=== PATIENT | male | born 1970 | race Caucasian/White ===

== ENCOUNTER 2020-06-22 18:59 | Inpatient (IN) | payer BC ==
--- NOTE | 2020-06-22 19:44 | Event Note ---
ED Screening Note Date of service: 06/22/20 Time: 19:38 ED Screening Note: 50 y o male with PMH DM, HTN, Cholesterol presents s/p fall x 3 days ago while he was drunk, states been drinking x 3 days and hasnt been taking his meds cc of right sided lateral thorax pain This initial assessment/diagnostic orders/clinical plan/treatment(s) is/are subject to change based on patients health status, clinical progression and re- assessment by fellow clinical providers in the ED. Further treatment and workup at subsequent clinical providers discretion. Patient/guardian urged not to elope from the ED as their condition may be serious if not clinically assessed and managed. Initial orders include: labs, ua, rib detail
--- NOTE | 2020-06-22 20:27 | XRay Report ---
BILATERAL RIB SERIES 5 VIEWS INDICATION: Chest pain after fall. COMPARISON: No relevant prior imaging study available. FINDINGS: No acute pulmonary or pleural findings. No displaced rib fractures are seen bilaterally. IMPRESSION: 1. No acute findings. Signer Name: Kaden Lorenz MD Signed: 06/22/2020 8:23 PM Workstation Name: [id number]
[2020-06-22 21:39] LABS: Basophils # (Auto) 0.1 K/mm3 (0.0-0.1); Basophils % (Auto) 0.3 % (0.0-1.8); Hematocrit 45.7 % (35.5-45.6); Hemoglobin 15.5 gm/dl (11.8-15.2); Lymphocytes # (Auto) 2.3 K/mm3 (1.2-5.4); Lymphocytes % (Auto) 11.6 % (13.4-35.0); Mean Corpuscular HGB Conc 34 % (32-34); Mean Corpuscular Volume 87 fl (84-94); Monocytes # (Auto) 1.2 K/mm3 (0.0-0.8); Monocytes % (Auto) 5.9 % (0.0-7.3); Platelet Count 349 K/mm3 (140-440); Red Blood Count 5.24 M/mm3 (3.65-5.03); Red Cell Distribution Width 13.4 % (13.2-15.2)
[2020-06-22 21:44] LABS: Alanine Aminotransferase 40 units/L (7-56); Albumin 4.8 g/dL (3.9-5); Blood Urea Nitrogen 10 mg/dL (9-20); Hemolysis Index 7
[2020-06-22 21:55] LABS: BUN/Creatinine Ratio 17
[2020-06-23 00:15] LABS: Bilirubin,Urine NEG (Negative); Blood,Urine SM (Negative); Color,Urine Straw (Yellow); Mucus,Urine FEW /HPF; Protein,Urine <15 mg/dL mg/dL (Negative); Urobilinogen,Urine < 2.0 mg/dL (<2.0); WBC,Urine < 1.0 /HPF (0.0-6.0)
[2020-06-23] MEDS ORDERED: SODIUM CHLORIDE 0.9% 1000 ML 1,000 ML ONE (00:46)
[2020-06-23] MEDS ORDERED: SODIUM CHLORIDE 0.9% 1000 ML 1,000 ML IV ONE ×2 (00:47→01:38)
[2020-06-23] MEDS ORDERED: D5W/0.9% NACL 1,000 ML IV STA (00:55)
--- NOTE | 2020-06-23 01:08 | Emergency Department Report ---
<RAFAEL FENTON - Last Filed: 06/23/20 00:51> ED Fall HPI - General Chief Complaint: Fall Stated Complaint: DIZZY Time Seen by Provider: 06/23/20 01:30 Source: patient Mode of arrival: Ambulatory - History of Present Illness Initial Comments: 50-year-old male presents emergency department complaining of a trip and fall about 3 days ago while he was intoxicated landing on his right side and since that time having pain with movement and deep breaths. Reports no fevers chills or sweats no nausea vomiting but states he has not been taking his diabetic medications as prescribed for the last 3 to 4days as he has been constantly drinking in the evening time he does not take any diabetic medications in the morning. States his blood sugars have been running more high as a result. States has been having excessive amount of anxiety leading to racing heartbeats that he has been experiencing since the time of trauma. - Related Data Home Medications Medication Instructions Recorded Confirmed Last Taken AtorvaSTATin 20 mg PO DAILY 06/23/20 06/23/20 Unknown Empagliflozin [Jardiance] 10 mg PO DAILY 06/23/20 06/23/20 Unknown Lisinopril/Hydrochlorothiazide 1 tab PO QDAY 06/23/20 06/23/20 Unknown [Zestoretic 20-25 mg] Metformin HCl [Metformin HCl ER] 500 mg PO BID 06/23/20 06/23/20 Unknown glipiZIDE [Glucotrol] 10 mg PO QDAY 06/23/20 06/23/20 Unknown Allergies Allergy/AdvReac Type Severity Reaction Status Date / Time No Known Allergies Allergy Verified 06/23/20 00:53 ED Review of Systems Comment: All other systems reviewed and negative ED Past Medical Hx - Past Medical History Previous Medical History?: Yes Hx Hypertension: Yes Hx Diabetes: Yes Additional medical history: high cholesterol - Surgical History Past Surgical History?: No - Social History Smoking Status: Never Smoker Substance Use Type: Alcohol - Medications Home Medications: Home Medications Medication Instructions Recorded Confirmed Last Taken Type AtorvaSTATin 20 mg PO DAILY 06/23/20 06/23/20 Unknown History Empagliflozin [Jardiance] 10 mg PO DAILY 06/23/20 06/23/20 Unknown History Lisinopril/Hydrochlorothiazide 1 tab PO QDAY 06/23/20 06/23/20 Unknown History [Zestoretic 20-25 mg] Metformin HCl [Metformin HCl ER] 500 mg PO BID 06/23/20 06/23/20 Unknown History glipiZIDE [Glucotrol] 10 mg PO QDAY 06/23/20 06/23/20 Unknown History ED Physical Exam - General Limitations: Language Barrier General appearance: alert, in no apparent distress - Head Head exam: Present: atraumatic, normocephalic - Eye Eye exam: Present: normal appearance, PERRL, EOMI Pupils: Present: normal accommodation - ENT ENT exam: Present: normal exam, normal orophraynx, mucous membranes moist - Neck Neck exam: Present: normal inspection - Respiratory Respiratory exam: Present: normal lung sounds bilaterally, chest wall tenderness (Right chest tenderness). Absent: respiratory distress - Cardiovascular Cardiovascular Exam: Present: regular rate, normal rhythm. Absent: normal heart sounds, systolic murmur, diastolic murmur, rubs, gallop - GI/Abdominal GI/Abdominal exam: Present: soft, normal bowel sounds - Rectal Rectal exam: Present: deferred - Extremities Exam Extremities exam: Present: normal inspection - Back Exam Back exam: Present: normal inspection - Neurological Exam Neurological exam: Present: alert, oriented X3 - Psychiatric Psychiatric exam: Present: normal affect, normal mood - Skin Skin exam: Present: warm, dry, intact, normal color. Absent: rash ED Medical Decision Making - Lab Data Result diagrams: 06/22/20 21:05 06/22/20 21:05 ED Disposition Clinical Impression: Alcohol use disorder, Metabolic acidosis, Metabolic acidosis, increased anion gap (IAG), Hyponatremia, Tremor Alcohol withdrawal Qualifiers: Complication of substance-induced condition: uncomplicated Qualified Code(s): F10.230 - Alcohol dependence with withdrawal, uncomplicated Disposition: DC-09 OP ADMIT IP TO THIS HOSP Condition: Critical <JUAN THURSTON - Last Filed: 06/23/20 02:44> ED Fall HPI - General Source: patient, RN notes reviewed Limitations: No Limitations ED Review of Systems Constitutional: denies: chills, fever Eyes: denies: eye pain, eye discharge, vision change ENT: denies: ear pain, throat pain Respiratory: denies: cough, shortness of breath, wheezing Cardiovascular: denies: chest pain, palpitations Endocrine: no symptoms reported Gastrointestinal: denies: abdominal pain, nausea, diarrhea Genitourinary: denies: urgency, dysuria Musculoskeletal: denies: back pain, joint swelling, arthralgia Skin: denies: rash, lesions Neurological: denies: headache, weakness, paresthesias Psychiatric: denies: anxiety, depression Hematological/Lymphatic: denies: easy bleeding, easy bruising ED Medical Decision Making - Lab Data Result diagrams: 06/22/20 21:05 06/22/20 21:05 <JEFF GAY III - Last Filed: 06/23/20 05:40> ED Fall HPI - General Source: patient Mode of arrival: Ambulatory - History of Present Illness Initial Comments: Patient is a 50-year-old male that presents emergency room with a fall 3 days ago. Patient complaining of right rib pain. Patient states that the right- sided rib pain is a 10 out of 10. Patient states that the rib pain is better with rest. Patient states the pain is worse with movement, palpation and deep breath. Patient denies nausea and vomiting. Patient states he drinks regularly. Patient states is not taking any medications for diabetes or high blood pressure or high cholesterol. Patient states his last alcoholic drink was at noon yesterday. Patient states he is feeling shaky. Patient denies recent travel. Patient denies recent international travel. Patient denies exposure to the novel coronavirus. Patient denies sick contacts. Patient denies fever and chills. Patient denies cough. Patient denies diarrhea. Patient denies coming in contact with anybody with symptoms of the novel coronavirus. Complaint: fall -: Sudden Fall From: standing When Fall Occurred: unsure Fall Witnessed: no Place Fall Occurred: home Loss of Consciousness: none Prolonged Down Time?: no Location: chest Severity: severe Severity scale (0 -10): 10 Quality: sharp Context: tripped/slipped, alcohol use Associated Symptoms: denies. denies: headache, neck pain, numbness, weakness, chest paint, shortness of breath, abdominal pain, hematuria, unable to walk, lightheaded, vertigo, confusion ED Review of Systems ROS: Stated complaint: DIZZY Other details as noted in HPI Constitutional: denies: chills, fever Eyes: denies: eye pain, eye discharge, vision change ENT: denies: ear pain, throat pain Respiratory: denies: cough, shortness of breath, wheezing Cardiovascular: chest pain. denies: palpitations Endocrine: no symptoms reported Gastrointestinal: denies: abdominal pain, nausea, diarrhea Genitourinary: denies: urgency, dysuria Musculoskeletal: denies: back pain, joint swelling, arthralgia Skin: denies: rash, lesions Neurological: as per HPI. denies: headache, weakness, paresthesias Psychiatric: denies: anxiety, depression Hematological/Lymphatic: denies: easy bleeding, easy bruising ED Past Medical Hx - Past Medical History Previous Medical History?: Yes Hx Hypertension: Yes Hx Diabetes: Yes - Surgical History Past Surgical History?: No - Family History Family history: no significant - Social History Smoking Status: Never Smoker Substance Use Type: Alcohol ED Physical Exam - General Limitations: No Limitations General appearance: alert, in no apparent distress - Head Head exam: Present: atraumatic, normocephalic - Eye Eye exam: Present: normal appearance - ENT ENT exam: Present: mucous membranes moist - Neck Neck exam: Present: normal inspection - Respiratory Respiratory exam: Present: normal lung sounds bilaterally, chest wall tenderness. Absent: respiratory distress, wheezes, rales - Cardiovascular Cardiovascular Exam: Present: regular rate, normal rhythm. Absent: systolic murmur, diastolic murmur, rubs, gallop - GI/Abdominal GI/Abdominal exam: Present: soft, normal bowel sounds - Rectal Rectal exam: Present: deferred - Extremities Exam Extremities exam: Present: normal inspection - Back Exam Back exam: Present: normal inspection - Neurological Exam Neurological exam: Present: alert, oriented X3 - Psychiatric Psychiatric exam: Present: normal affect, normal mood - Skin Skin exam: Present: warm, dry, intact, normal color. Absent: rash ED Course Vital Signs 06/22/20 06/23/20 06/23/20 19:39 01:34 01:45 Temperature 99.1 F Pulse Rate 123 H 109 H 107 H Respiratory 20 20 31 H Rate Blood Pressure 134/85 145/58 O2 Sat by Pulse 96 98 96 Oximetry 06/23/20 06/23/20 06/23/20 02:00 02:15 02:30 Temperature Pulse Rate 107 H 105 H 108 H Respiratory 25 H 26 H 24 Rate Blood Pressure 136/73 133/72 142/74 O2 Sat by Pulse 94 97 94 Oximetry 06/23/20 06/23/20 06/23/20 02:45 03:00 03:15 Temperature Pulse Rate 106 H Respiratory 22 Rate Blood Pressure 119/70 119/70 127/71 O2 Sat by Pulse 94 97 96 Oximetry 06/23/20 06/23/20 06/23/20 03:30 03:45 04:00 Temperature Pulse Rate 99 H 105 H Respiratory 24 23 Rate Blood Pressure 120/69 127/68 124/64 O2 Sat by Pulse 96 96 94 Oximetry - Reevaluation(s) Reevaluation #1: Initial evaluation done. Patient tremulous and shaky. Patient placed on a CIWA protocol. Patient has abnormal labs. Patient will be given fluids. Patient given a milligram of Ativan. I discussed all results with patient. I discussed plan of care with patient. Patient agrees with plan of care and admission. Patient to be admitted to the hospitalist service. 06/23/20 01:40 - Consultations Consultation #1: Hospitalist consulted for admission. Hospitalist to admit patient. 06/23/20 01:48 ED Medical Decision Making - Lab Data Result diagrams: 06/22/20 21:05 06/22/20 21:05 - EKG Data -: EKG Interpreted by Me EKG shows normal: sinus rhythm, axis, intervals, QRS complexes, ST-T waves Rate: tachycardia - Radiology Data Radiology results: report reviewed, image reviewed interpreted by me: Rib series, chest x-ray: No pneumonia, no pneumothorax, no foreign body, no osseous findings, no acute findings BILATERAL RIB SERIES 5 VIEWS INDICATION: Chest pain after fall. COMPARISON: No relevant prior imaging study available. FINDINGS: No acute pulmonary or pleural findings. No displaced rib fractures are seen bilaterally. IMPRESSION: 1. No acute findings. - Medical Decision Making Patient is a 50-year-old male who presents emergency room with complaints of recent fall and rib pain. Patient also complained of frequent alcohol use and not taking any of his medications. Patient had labs done. Patient's labs showed a metabolic acidosis with an open anion gap. Patient given fluids in the ER. Patient also began to become tremulous and shaky and complaining of anxious anxiety. Patient also found to be tachycardic. Patient placed on a CIWA protocol for withdrawal. Patient given a milligram of Ativan prophylactically. Patient's responded well to Ativan. Patient is found to be hyperglycemic but blood sugar was 180. Patient had a chest x-ray which was negative for acute findings and fracture. Patient complained of right chest pain secondary to a fall. Patient admitted to the hospitalist service and into the ICU. . - Differential Diagnosis Electrolyte imbalance, dehydration, acidosis, withdrawal, fall, chest pain, Critical Care Time: Yes Critical care time in (mins) excluding proc time.: 35 Critical care attestation.: If time is entered above; I have spent that time in minutes in the direct care of this critically ill patient, excluding procedure time. Critical Care Time: 35 minutes ED Disposition Is pt being admited?: Yes Does the pt Need Aspirin: No Time of Disposition: 01:39
[2020-06-23] MEDS ORDERED: LORazepam 2 MG/ML VIAL IV PRN ×3 (01:37)
[2020-06-23] MEDS ORDERED: LORazepam 2 MG/ML VIAL IV ONE (01:47)
--- NOTE | 2020-06-23 02:23 | History and Physical Report ---
History of Present Illness Date of examination: 06/23/20 Date of admission: 06/23/20 Chief complaint: Fall Anxiety Alcohol withdrawal History of present illness: This a 50-year-old male With past medical history of diabetes, hypertension, high cholesterole. and alcohol use. He presents to emergency department complaining of a trip and fall about 3 days ago with right side pain with movement and deep breaths. He states he has not been taking his diabetic medications as prescribed. he admits he has been drinking in the evening. He reports having excessive anxiety and racing heartbeats. patient seen at bedside in ED ED Work Up: Blood pressure 145/58, Hr 107, Respiration 20, 31, WBC 20, Na 128, potassium 3.5, C02 20, Cr 0.6 hest x-ray-No acute finding Past History Past Medical History: hypertension, hyperlipidemia Past Surgical History: No surgical history Social history: no significant social history Family history: no significant family history Medications and Allergies Allergies Allergy/AdvReac Type Severity Reaction Status Date / Time No Known Allergies Allergy Verified 06/23/20 00:53 Active Meds: Active Medications Dextrose/Sodium Chloride (D5ns) 1,000 mls @ 250 mls/hr IV DIRECT STA Stop: 06/23/20 04:54 Last Admin: 06/23/20 01:07 Dose: 250 mls/hr Documented by: Sodium Chloride (Nacl 0.9% 1000 Ml) 1,000 mls @ 999 mls/hr IV BOLUS ONE Stop: 06/23/20 02:38 Last Admin: 06/23/20 01:43 Dose: 999 mls/hr Documented by: Lorazepam (Ativan) 2 mg IV Q1HR PRN PRN Reason: CIWA-Ar 8-15 Lorazepam (Ativan) 4 mg IV Q1HR PRN PRN Reason: CIWA-Ar 16-25 Lorazepam (Ativan) 4 mg IV Q15MIN PRN PRN Reason: CIWA-Ar >25 Exam - Constitutional Vitals: Temp Pulse Resp BP Pulse Ox 99.1 F 107 H 31 H 145/58 96 06/22/20 19:39 06/23/20 01:45 06/23/20 01:45 06/23/20 01:45 06/23/20 01:45 General appearance: Present: no acute distress, well-nourished - EENT Eyes: Present: PERRL ENT: hearing intact, clear oral mucosa - Neck Neck: Present: supple, normal ROM - Respiratory Respiratory effort: normal Respiratory: bilateral: CTA - Cardiovascular Heart Sounds: Present: S1 & S2. Absent: rub, click - Extremities Extremities: pulses symmetrical, No edema Peripheral Pulses: within normal limits - Abdominal General gastrointestinal: Present: soft, non-tender, non-distended, normal bowel sounds Male genitourinary: Present: normal - Integumentary Integumentary: Present: clear, warm, dry - Musculoskeletal Musculoskeletal: gait normal, strength equal bilaterally - Psychiatric Psychiatric: appropriate mood/affect, intact judgment & insight - Neurologic Neurologic: CNII-XII intact, moves all extremities Results - Labs CBC & Chem 7: 06/22/20 21:05 06/22/20 21:05 Labs: Abnormal lab results 06/22/20 06/22/20 Range/Units 21:05 21:05 WBC 20.0 H (4.5-11.0) K/mm3 RBC 5.24 H (3.65-5.03) M/mm3 Hgb 15.5 H (11.8-15.2) gm/dl Hct 45.7 H (35.5-45.6) % Lymph % (Auto) 11.6 L (13.4-35.0) % [place] # (Auto) 1.2 H (0.0-0.8) K/mm3 Seg Neutrophils % 82.2 H (40.0-70.0) % Seg Neutrophils # 16.4 H (1.8-7.7) K/mm3 Sodium 128 L (137-145) mmol/L Potassium 3.5 L (3.6-5.0) mmol/L Chloride 79.6 L (98-107) mmol/L Carbon Dioxide 20 L (22-30) mmol/L Creatinine 0.6 L (0.8-1.3) mg/dL Glucose 184 H (75-100) mg/dL Assessment and Plan - Patient Problems (1) Leukocytosis (leucocytosis) Current Visit: Yes Status: Acute Plan to address problem: Elevated WBC ?cause aspiration PNA Chest x-ray negative for acute finding Start empiric abx with zosyn Blood culture-f/u with result UA negative for UTI (2) Alcohol use disorder Current Visit: Yes Status: Acute Plan to address problem: Will discuss alcohol use cessation when patient is stable Am lab-liver function, lipid profil, CMP, magnesium and phosphate level replace prn (3) Alcohol withdrawal Current Visit: Yes Status: Acute Qualifiers: Complication of substance-induced condition: uncomplicated Qualified Code(s): F10.230 - Alcohol dependence with withdrawal, uncomplicated Plan to address problem: Safety and fall precaution at all times Continue banana bag monitor electrolytes and replace if needed Continue CIWA protocol ativa prn (4) Hyponatremia Current Visit: Yes Status: Acute Plan to address problem: likely 2/2 alcohol use/dehydration Continue IV hydration Monitor sodium level Kidney function normal (5) Metabolic acidosis, increased anion gap (IAG) Current Visit: Yes Status: Acute Plan to address problem: likely 2/2 to dehydration/alcohol use continue IV hydration monitor C02 level and vital signs-respiration rate (6) DVT prophylaxis Current Visit: Yes Status: Acute Plan to address problem: SCD (7) Hypertension Current Visit: Yes Status: Acute Plan to address problem: Monitor blood presure Continue Home BP med Adjust bp med for optimum blood pressure control (8) Hyperlipidemia Current Visit: Yes Status: Acute Plan to address problem: resume home statin (9) Diabetes Current Visit: Yes Status: Acute Plan to address problem: Monitor blood sugar with SSI pt on home metformin-will hold and will resume at d/c Check HGa1C-
[2020-06-23] MEDS ORDERED: 1: FOLIC ACID 1 MG, MULTIPLE VITAMIN INJ, ADULT 10 ML, THIAMINE 100 MG in SODIUM CHLORID IV SCH (03:00)
[2020-06-23] MEDS ORDERED: POTASSIUM CHLORIDE 10 MEQ 10 MEQ/100 ML BAG IV SCH (03:00)
[2020-06-23] MEDS: THIAMINE 100 MG, FOLIC ACID 1 MG, MULTIPLE VITAMIN INJ, ADULT 10 ML in SODIUM CHLORIDE ... IV SCH (03:26)
[2020-06-23] MEDS ORDERED: POTASSIUM CHLORIDE ER 20 MEQ TAB PO ONE ×2 (03:39)
[2020-06-23 04:55] LABS: Albumin 3.9 g/dL (3.9-5); Bilirubin,Direct 0.2 mg/dL (0-0.2); Chol/HDL Ratio 3.64 %
[2020-06-23] MEDS ORDERED: LORazepam 2 MG/ML VIAL ONE (11:47)
--- NOTE | 2020-06-23 13:38 | Consultation ---
History of Present Illness Consult date: 06/23/20 Requesting physician: VERNA BARBER History of present illness: This a 50-year-old male With past medical history of diabetes, hypertension, high cholesterole. and alcohol use. He presents to emergency department complaining of a trip and fall about 3 days ago with right side pain with movement and deep breaths. He states he has not been taking his diabetic medications as prescribed. he admits he has been drinking in the evening. He reports having excessive anxiety and racing heartbeats. patient seen at bedside in ED ED Work Up: Blood pressure 145/58, Hr 107, Respiration 20, 31, WBC 20, Na 128, potassium 3.5, C02 20, Cr 0.6 Chest x-ray- Images personally reviewed. No acute finding Review of Systems Constitutional: denies: chills, fever Eyes: denies: eye pain, eye discharge, vision change ENT: denies: ear pain, throat pain Respiratory: denies: cough, shortness of breath, wheezing Cardiovascular: denies: chest pain, palpitations Endocrine: no symptoms reported Gastrointestinal: denies: abdominal pain, nausea, diarrhea Genitourinary: denies: urgency, dysuria Musculoskeletal: denies: back pain, joint swelling, arthralgia Skin: denies: rash, lesions Neurological: denies: headache, weakness, paresthesias Psychiatric: denies: anxiety, depression Hematological/Lymphatic: denies: easy bleeding, easy bruising - Past Medical History Previous Medical History?: Yes Hx Hypertension: Yes Hx Diabetes: Yes Additional medical history: high cholesterol - Surgical History Past Surgical History?: No - Social History Smoking Status: Never Smoker Substance Use Type: Alcohol Past History Past Medical History: hypertension, hyperlipidemia Past Surgical History: No surgical history Social history: no significant social history Family history: no significant family history Medications and Allergies Allergies Allergy/AdvReac Type Severity Reaction Status Date / Time No Known Allergies Allergy Verified 06/23/20 00:53 Home Medications Medication Instructions Recorded Confirmed Last Taken Type AtorvaSTATin 20 mg PO DAILY 06/23/20 06/23/20 Unknown History Empagliflozin [Jardiance] 10 mg PO DAILY 06/23/20 06/23/20 Unknown History Lisinopril/Hydrochlorothiazide 1 tab PO QDAY 06/23/20 06/23/20 Unknown History [Zestoretic 20-25 mg] Metformin HCl [Metformin HCl ER] 500 mg PO BID 06/23/20 06/23/20 Unknown History glipiZIDE [Glucotrol] 10 mg PO QDAY 06/23/20 06/23/20 Unknown History LORazepam [Ativan] 0.5 mg PO Q6H PRN 10 Days #20 06/24/20 Unknown Rx tablet Active Meds: Active Medications Atorvastatin Calcium (Lipitor) 20 mg PO QHS [facility] Hydrochlorothiazide (Hctz) 12.5 mg PO QDAY [facility] Thiamine HCl 100 mg/ Folic Acid 1 mg/ Multivitamins/Minerals 10 ml/ Sodium Chlo ride 1,011.2 mls @ 125 mls/hr IV Q24H [facility] Last Admin: 06/23/20 03:26 Dose: 125 mls/hr Documented by: Sodium Chloride (Nacl 0.9% 1000 Ml) 1,000 mls @ 125 mls/hr IV DIRECT [facility] Insulin Human Regular (Humulin R) 0 unit SUB-Q ACHS [facility]; Protocol Lisinopril (Zestril) 10 mg PO QDAY [facility] Lorazepam (Ativan) 2 mg IV Q1HR PRN PRN Reason: CIWA-Ar 8-15 Lorazepam (Ativan) 4 mg IV Q1HR PRN PRN Reason: CIWA-Ar 16-25 Lorazepam (Ativan) 4 mg IV Q15MIN PRN PRN Reason: CIWA-Ar >25 Physical Examination Vital signs: Vital Signs Temp Pulse Resp BP Pulse Ox 99.1 F 123 H 20 134/85 96 06/22/20 19:39 06/22/20 19:39 06/22/20 19:39 06/22/20 19:39 06/22/20 19:39 Vitals reviewed General appearance: Present: no acute distress, well-nourished - EENT Eyes: Present: PERRL ENT: hearing intact, clear oral mucosa - Neck Neck: Present: supple, normal ROM - Respiratory Respiratory effort: normal Respiratory: bilateral: CTA - Cardiovascular Heart Sounds: Present: S1 & S2. Absent: rub, click - Extremities Extremities: pulses symmetrical, No edema Peripheral Pulses: within normal limits - Abdominal General gastrointestinal: Present: soft, non-tender, non-distended, normal bowel sounds Male genitourinary: Present: normal - Integumentary Integumentary: Present: clear, warm, dry - Musculoskeletal Musculoskeletal: gait normal, strength equal bilaterally - Psychiatric Psychiatric: appropriate mood/affect, intact judgment & insight - Neurologic Neurologic: CNII-XII intact, moves all extremities Results - Laboratory Findings CBC and BMP: 06/24/20 07:10 06/24/20 07:10 Abnormal lab findings: Abnormal Labs 06/22/20 06/22/20 06/23/20 21:05 21:05 04:00 WBC 20.0 H RBC 5.24 H Hgb 15.5 H Hct 45.7 H Lymph % (Auto) 11.6 L [place] # (Auto) 1.2 H Seg Neutrophils % 82.2 H Seg Neutrophils # 16.4 H Sodium 128 L Potassium 3.5 L Chloride 79.6 L Carbon Dioxide 20 L Creatinine 0.6 L Glucose 184 H Hemoglobin A1c Total Creatine Kinase 571 H Triglycerides 177 H Cholesterol 208 H LDL Cholesterol Direct 138 H 06/23/20 04:00 WBC RBC Hgb Hct Lymph % (Auto) [place] # (Auto) Seg Neutrophils % Seg Neutrophils # Sodium Potassium Chloride Carbon Dioxide Creatinine Glucose Hemoglobin A1c 10.2 H Total Creatine Kinase Triglycerides Cholesterol LDL Cholesterol Direct - Diagnostic Findings Chest x-ray: image reviewed Assessment and Plan Alcohol withdrawal Hyponatremia Metabolic acidosis, increased anion gap Leukocytosis (leucocytosis) Hypertension Hyperlipidemia Diabetes - prn supplemental oxygen as needed to keep O2 sats > 90% -CIWA protocol <25, at this time. can be downgraded to telemtry floor - prn bronchodilators with pulmonary hygiene per RT - prn analgesia per pain score -Monitor temperature curve and WCC -IV hydration -ABG -Aspiration precautions -Correct electrolytes as indicated -Follow up CBC in am - PT/OT as tolerated - accuchecks with glycemic control per SSI for target BG < 180 mg/dl -VTE prophylaxis -Fall precautions - Flu & pneumovax addressed per protocol Thank you for consult. Will follow
[2020-06-23] MEDS: INSULIN REGULAR, HUMAN 100 UNIT/ML 3ML VIAL SUB-Q SCH ×3 (17:08→23:40)
[2020-06-23] MEDS ORDERED: hydroCHLOROthiazide 12.5 MG CAP ONE (17:29)
[2020-06-23] MEDS ORDERED: LISINOPRIL 10 MG TAB ONE (17:30)
[2020-06-23] MEDS: LISINOPRIL 10 MG TAB PO SCH (17:33)
[2020-06-23] MEDS: hydroCHLOROthiazide 12.5 MG CAP PO SCH (17:34)
[2020-06-23] MEDS ORDERED: HYDROmorphone 1 MG/1 ML INJ IV ONE (17:50)
[2020-06-23] MEDS ORDERED: HYDROmorphone 1 MG/1 ML INJ ONE (17:57)
[2020-06-23] MEDS: SODIUM CHLORIDE 0.9% 1000 ML 1,000 ML IV SCH (23:38)
--- NOTE | 2020-06-23 23:52 | Event Note ---
Date: 06/23/20 Patient seen and evaluated Alert and oriented Tremulous Otherwise stable Continue CIWA protocol A.m. labs requested Patient downgraded to medical floor/telemetry
[2020-06-24] MEDS: THIAMINE 100 MG, FOLIC ACID 1 MG, MULTIPLE VITAMIN INJ, ADULT 10 ML in SODIUM CHLORIDE ... IV SCH (04:03)
[2020-06-24 05:10] VITALS: BP 141/91
[2020-06-24 07:54] LABS: Basophils % (Auto) 0.6 % (0.0-1.8); Eosinophils # (Auto) 0.2 K/mm3 (0.0-0.4); Eosinophils % (Auto) 3.1 % (0.0-4.3); Hematocrit 45.7 % (35.5-45.6); Hemoglobin 15.5 gm/dl (11.8-15.2); Lymphocytes # (Auto) 2.2 K/mm3 (1.2-5.4); Lymphocytes % (Auto) 28.1 % (13.4-35.0); Mean Corpuscular HGB Conc 34 % (32-34); Mean Corpuscular Volume 90 fl (84-94); Monocytes # (Auto) 0.8 K/mm3 (0.0-0.8); Monocytes % (Auto) 10.3 % (0.0-7.3); Platelet Count 275 K/mm3 (140-440); Red Blood Count 5.11 M/mm3 (3.65-5.03); Red Cell Distribution Width 13.8 % (13.2-15.2)
[2020-06-24 08:07] LABS: Alanine Aminotransferase 35 units/L (7-56); Albumin 3.9 g/dL (3.9-5); BUN/Creatinine Ratio 17; Blood Urea Nitrogen 10 mg/dL (9-20); Calcium 8.6 mg/dL (8.4-10.2); Hemolysis Index 7
[2020-06-24] MEDS ORDERED: THIAMINE 100 MG TAB PO SCH (10:00)
[2020-06-24] MEDS ORDERED: MULTIVITAMINS ,THERAPEUTIC TAB PO SCH (10:00)
[2020-06-24] MEDS ORDERED: FOLIC ACID 1 MG TAB PO SCH (10:00)
[2020-06-24] MEDS: hydroCHLOROthiazide 12.5 MG CAP PO SCH (10:20)
[2020-06-24] MEDS: LISINOPRIL 10 MG TAB PO SCH (10:20)
[2020-06-24] MEDS: INSULIN REGULAR, HUMAN 100 UNIT/ML 3ML VIAL SUB-Q SCH ×3 (10:21→17:15)
[2020-06-24] MEDS: SODIUM CHLORIDE 0.9% 1000 ML 1,000 ML IV SCH ×2 (11:33→17:15)
[2020-06-24] MEDS ORDERED: FLU VACC QUAD 2020-2021 (6 months +)/PF 60 0.5 ML SYRINGE IM ONE (12:00)
[2020-06-24] MEDS ORDERED: ACETAMINOPHEN 325 MG TAB PO PRN (14:52)
--- NOTE | 2020-06-24 18:36 | Discharge Summary ---
Providers - Providers Date of Admission: 06/23/20 01:57 Date of discharge: 06/24/20 Attending physician: VERNA BARBER 06/23/20 04:00 Consult to Case Management [CONS] Stat Services Needed at Discharge: Other Companion Caregiver Notified:: LATISHA Phone number called:: [phone] Was contact made?: Yes If yes, spoke with:: piggery worker Time called:: 09:00 Comment:: pt needs medication assistance Additional Physician Instructions: medication assistance Primary care physician: PROFESSOR OF SPORT MANAGEMENT Hospitalization Condition: Critical Disposition: DC-01 TO HOME OR SELFCARE Exam - Constitutional Vitals: Temp Pulse Resp BP Pulse Ox 98.4 F 87 16 141/91 98 06/24/20 03:59 06/24/20 03:59 06/24/20 03:59 06/24/20 03:59 06/24/20 03:59 Plan Follow up with: PRIMARY CAREMD [Primary Care Provider] - 3-5 Days
--- NOTE | 2020-06-24 19:46 | Progress Note ---
Assessment and Plan Alcohol withdrawal Hyponatremia Metabolic acidosis, increased anion gap Leukocytosis (leucocytosis) Hypertension Hyperlipidemia Diabetes - prn supplemental oxygen as needed to keep O2 sat's > 90% - prn bronchodilators with pulmonary hygiene per RT - prn analgesia per pain score - PT/OT as tolerated - mobility protocols for pressure ulcer prophylaxis - accuchecks with glycemic control per SSI for target BG < 180 mg/dl - GI & VTE prophylaxis - Flu & pneumovax addressed per protocol - continue other care per attending / other consultants ... re-evaluate in am & prn Subjective Date of service: 06/24/20 Interval history: Patient is seen today for: Alcohol withdrawal; Hyponatremia; Metabolic acidosis, increased anion gap; Leukocytosis ; DM II; HTN Seen and examined at bedside; 24hour events reviewed; nursing and respiratory care staff consulted; no adverse overnight events reported to me; resting in bed; Objective CBC and BMP: 06/24/20 07:10 06/24/20 07:10 Abnormal lab findings: Abnormal Labs 06/22/20 06/22/20 06/23/20 21:05 21:05 04:00 WBC 20.0 H RBC 5.24 H Hgb 15.5 H Hct 45.7 H Lymph % (Auto) 11.6 L [place] % (Auto) [place] # (Auto) 1.2 H Seg Neutrophils % 82.2 H Seg Neutrophils # 16.4 H Sodium 128 L Potassium 3.5 L Chloride 79.6 L Carbon Dioxide 20 L Creatinine 0.6 L Glucose 184 H POC Glucose Hemoglobin A1c [place] Total Creatine Kinase 571 H Triglycerides 177 H Cholesterol 208 H LDL Cholesterol Direct 138 H 06/23/20 06/23/20 06/23/20 04:00 17:33 23:11 WBC RBC Hgb Hct Lymph % (Auto) [place] % (Auto) [place] # (Auto) Seg Neutrophils % Seg Neutrophils # Sodium Potassium Chloride Carbon Dioxide Creatinine Glucose POC Glucose 139 H 191 H Hemoglobin A1c 10.2 H [place] Total Creatine Kinase Triglycerides Cholesterol LDL Cholesterol Direct 06/24/20 06/24/20 06/24/20 07:10 07:10 07:10 WBC RBC 5.11 H Hgb 15.5 H Hct 45.7 H Lymph % (Auto) [place] % (Auto) 10.3 H [place] # (Auto) Seg Neutrophils % Seg Neutrophils # Sodium Potassium 3.2 L Chloride 96.3 L Carbon Dioxide Creatinine 0.6 L Glucose 199 H POC Glucose Hemoglobin A1c [place] 17.0 L Total Creatine Kinase Triglycerides Cholesterol LDL Cholesterol Direct 06/24/20 06/24/20 06/24/20 08:25 13:39 16:42 WBC RBC Hgb Hct Lymph % (Auto) [place] % (Auto) [place] # (Auto) Seg Neutrophils % Seg Neutrophils # Sodium Potassium Chloride Carbon Dioxide Creatinine Glucose POC Glucose 175 H 233 H 162 H Hemoglobin A1c [place] Total Creatine Kinase Triglycerides Cholesterol LDL Cholesterol Direct
== END 2020-06-24 19:30 | disposition home or self-care (01) | DRG 641 ==
LOC: ED 18:59 → CC1 06-23 01:57 → 3A 06-23 17:30
PROVIDERS: ADMIT Internal Medicine Geriatric Medicine; ATTEND Internal Medicine
DX: E87.1 Hypo-osmolality and hyponatremia (principal); F10.239 Alcohol dependence with withdrawal, unspecified; E87.2 Acidosis; I10 Essential (primary) hypertension; E11.9 Type 2 diabetes mellitus without complications; F41.9 Anxiety disorder, unspecified; D72.829 Elevated white blood cell count, unspecified; E78.5 Hyperlipidemia, unspecified
CPT/HCPCS: 36415; 71111; 80053; 80061; 80076; 80320; 81001; 82140; 82150; 82550; 82962; 83036; 83735; 84100; 85025; 87040; 90686; 93005; G0378; A9270-GY; G0480; J1170; J1815; J2060; J3411; J7030; J7042